=== PATIENT | male | born 1940 | race Caucasian/White ===

== ENCOUNTER 2019-08-03 19:03 | Inpatient (IN) ==
[2019-08-03] MEDS ORDERED: Nitroglycerin 0.4 MG TAB.SUBL SL PRN ×2 (19:11→21:56)
[2019-08-03] MEDS ORDERED: Aspirin 81 MG TAB.CHEW PO ONE (19:11)
[2019-08-03] MEDS ORDERED: 0.9 % Sodium Chloride 1,000 ML IVC ONE (19:17)
[2019-08-03] MEDS ORDERED: Nitroglycerin 0.4 MG TAB.SUBL SL ONE (19:21)
[2019-08-03] MEDS ORDERED: *HR* Ticagrelor 90 MG TABLET ONE (19:28)
[2019-08-03] MEDS ORDERED: *HR* Heparin 5,000 UNIT/ML VIAL ONE (19:29)
[2019-08-03] MEDS ORDERED: *HR* Ticagrelor 90 MG TABLET PO ONE (19:30)
[2019-08-03] MEDS ORDERED: *HR* Heparin 5,000 UNIT/ML VIAL IVP ONE (19:30)
[2019-08-03] MEDS ORDERED: Heparin 1,000 UNITS/500 mL 500 ML ONE (19:38)
[2019-08-03] MEDS ORDERED: Nitroglycerin 1,000 MCG/10 ML VIAL IV ONE (19:38)
[2019-08-03] MEDS ORDERED: *HR* Heparin 10,000 UNIT/10 ML VIAL ONE (19:38)
[2019-08-03] MEDS ORDERED: 0.9 % Sodium Chloride 1,000 ML ONE (19:38)
[2019-08-03] MEDS ORDERED: ISOVUE-370 200 ML INFUS..BTL ONE (19:38)
[2019-08-03] MEDS ORDERED: *HR* FentaNYL (PF) 100 MCG/2 ML VIAL ONE (19:41)
[2019-08-03] MEDS ORDERED: methylPREDNISolone 125 MG/2 ML VIAL ONE (19:41)
[2019-08-03] MEDS ORDERED: *HR* Midazolam HCl 2 MG/2 ML VIAL ONE ×2 (19:41→20:05)
[2019-08-03] MEDS ORDERED: Verapamil 5 MG/2 ML VIAL ONE (19:45)
[2019-08-03 19:48] LABS: Basophils % 0.5 %; Eosinophils # 0.1 K/mcL (0.0-0.6); Eosinophils % 1.4 %; Hematocrit 37.9 % (37.5-50.1); Hemoglobin 12.7 g/dL (12.9-16.9); Immature Granulocytes % 0.3 % (0-4); Lymphocytes # 1.7 K/mcL (0.6-4.6); Lymphocytes % 25.9 %; Mean Corpuscular HGB Conc 33.5 g/dL (31.6-35.5); Mean Corpuscular Hemoglobin 33.7 pg (28.0-33.3); Mean Corpuscular Volume 100.5 fL (83.0-100.0); Mean Platelet Volume 13.3 fL (9.4-12.4); Monocytes # 0.7 K/mcL (0.0-1.3); Monocytes % 10.5 %; Platelet Count 175 K/mcL (140-400); Red Blood Count 3.77 M/mcL (4.19-5.50); Red Cell Distribution Width 14.1 % (11.5-14.5); Segmented Neutrophils % 61.4 %; White Blood Count 6.6 K/mcL (4.3-11.1)
[2019-08-03 19:49] LABS: Prothrombin Time 11.7 Seconds (9.4-12.1)
[2019-08-03 19:52] LABS: Activated Partial Thrombo Time 29.6 Seconds (26.0-36.0)
[2019-08-03] MEDS ORDERED: *HR* Atropine Sulfate 1 MG/10 ML SYRINGE ONE (20:04)
[2019-08-03 20:09] LABS: BUN/Creatinine Ratio 15 (6-26); Blood Urea Nitrogen 14 mg/dL (8-23); Carbon Dioxide 28 mEq/L (23-29); Chloride 101 mEq/L (98-107); Glucose 127 mg/dL (70-105); Osmolality,Calculated 288 (280-300); Sodium 138 mEq/L (136-145); Troponin I 0.06 ng/mL (< 0.04); eGFR For African Americans > 60 (> 60); eGFR For Non-African Americans > 60 (> 60)
[2019-08-03] MEDS ORDERED: Tirofiban 12.5 MG/250ML 12.5 MG/250 ML BAG ONE (20:14)
[2019-08-03] MEDS ORDERED: Ondansetron 4 MG/2 ML VIAL IVP PRN ×2 (21:24→21:29)
[2019-08-03] MEDS ORDERED: Tirofiban 12.5 MG/250ML 12.5 MG/250 ML BAG IVC SCH (21:30)
[2019-08-03] MEDS ORDERED: Morphine Sulfate 2 MG/ML SYRINGE IVP PRN (21:57)
[2019-08-04] MEDS ORDERED: 0.9 % Sodium Chloride 1,000 ML ONE (01:00)
[2019-08-04 05:12] LABS: Hematocrit 36.3 % (37.5-50.1); Hemoglobin 12.5 g/dL (12.9-16.9); Immature Granulocytes % 0.3 % (0-4); Lymphocytes # 0.3 K/mcL (0.6-4.6); Lymphocytes % 5.2 %; Mean Corpuscular HGB Conc 34.4 g/dL (31.6-35.5); Mean Corpuscular Hemoglobin 34.2 pg (28.0-33.3); Mean Corpuscular Volume 99.5 fL (83.0-100.0); Mean Platelet Volume 12.9 fL (9.4-12.4); Monocytes # 0.1 K/mcL (0.0-1.3); Monocytes % 0.9 %; Platelet Count 182 K/mcL (140-400); Red Blood Count 3.65 M/mcL (4.19-5.50); Segmented Neutrophils % 93.6 %; White Blood Count 6.4 K/mcL (4.3-11.1)
[2019-08-04 05:30] LABS: BUN/Creatinine Ratio 17 (6-26); Blood Urea Nitrogen 11 mg/dL (8-23); Calcium 9.8 mg/dL (8.6-10.3); Carbon Dioxide 26 mEq/L (23-29); Chloride 104 mEq/L (98-107); Glucose 160 mg/dL (70-105); Osmolality,Calculated 289 (280-300); Potassium 3.8 mEq/L (3.5-5.1); Sodium 138 mEq/L (136-145); eGFR For African Americans > 60 (> 60); eGFR For Non-African Americans > 60 (> 60)
[2019-08-04] MEDS ORDERED: *HR* Enoxaparin 40 MG/0.4 ML SYRINGE SQ SCH (06:00)
[2019-08-04] MEDS ORDERED: Perflutren Lipid Microsphere 1.3 ML in 0.9 % Sodium Chloride 8.7 ML IVP ONE (08:52)
[2019-08-04] MEDS ORDERED: Aspirin 81 MG TAB.CHEW PO SCH (09:00)
[2019-08-04] MEDS ORDERED: *HR* Ticagrelor 90 MG TABLET PO SCH (09:00)
[2019-08-04] MEDS ORDERED: Nitroglycerin 0.4 MG TAB.SUBL SL PRN (15:53)
[2019-08-04] MEDS ORDERED: Ondansetron 4 MG/2 ML VIAL IVP PRN ×2 (15:53)
[2019-08-04] MEDS ORDERED: Morphine Sulfate 2 MG/ML SYRINGE IVP PRN (15:53)
[2019-08-04] MEDS: *HR* Ticagrelor 90 MG TABLET PO SCH (20:25)
[2019-08-05] MEDS ORDERED: *HR* Enoxaparin 40 MG/0.4 ML SYRINGE SQ SCH (06:00)
[2019-08-05] MEDS: *HR* Ticagrelor 90 MG TABLET PO SCH ×2 (08:39→20:30)
[2019-08-05] MEDS ORDERED: Magnesium Oxide 400 MG TABLET PO SCH (09:00)
[2019-08-05] MEDS ORDERED: Aspirin 81 MG TAB.CHEW PO SCH (09:00)
[2019-08-05] MEDS ORDERED: Nitroglycerin 0.4 MG TAB.SUBL SL PRN (11:54)
[2019-08-05] MEDS ORDERED: Morphine Sulfate 2 MG/ML SYRINGE IVP PRN (11:54)
[2019-08-05] MEDS ORDERED: Ondansetron 4 MG/2 ML VIAL IVP PRN (11:54)
[2019-08-06] MEDS: *HR* Enoxaparin 40 MG/0.4 ML SYRINGE SQ SCH (05:16)
[2019-08-06 06:22] LABS: Basophils % 0.3 %; Eosinophils # 0.1 K/mcL (0.0-0.6); Eosinophils % 1.6 %; Hematocrit 35.9 % (37.5-50.1); Hemoglobin 12.2 g/dL (12.9-16.9); Immature Granulocytes % 0.3 % (0-4); Lymphocytes # 1.5 K/mcL (0.6-4.6); Lymphocytes % 19.2 %; Mean Corpuscular Hemoglobin 34.2 pg (28.0-33.3); Mean Corpuscular Volume 100.6 fL (83.0-100.0); Mean Platelet Volume 12.8 fL (9.4-12.4); Monocytes # 1.2 K/mcL (0.0-1.3); Monocytes % 14.6 %; Neutrophils # 5.1 K/mcL (1.6-8.9); Platelet Count 142 K/mcL (140-400); Red Blood Count 3.57 M/mcL (4.19-5.50); Red Cell Distribution Width 14.6 % (11.5-14.5); White Blood Count 7.9 K/mcL (4.3-11.1)
[2019-08-06 06:44] LABS: BUN/Creatinine Ratio 30 (6-26); Blood Urea Nitrogen 22 mg/dL (8-23); Carbon Dioxide 28 mEq/L (23-29); Chloride 104 mEq/L (98-107); Glucose 99 mg/dL (70-105); Osmolality,Calculated 291 (280-300); Potassium 3.7 mEq/L (3.5-5.1); Sodium 139 mEq/L (136-145); eGFR For African Americans > 60 (> 60); eGFR For Non-African Americans > 60 (> 60)
[2019-08-06] MEDS: Aspirin 81 MG TAB.CHEW PO SCH (08:27)
[2019-08-06] MEDS: Magnesium Oxide 400 MG TABLET PO SCH (08:27)
[2019-08-06] MEDS: *HR* Ticagrelor 90 MG TABLET PO SCH ×2 (08:29→20:53)
[2019-08-06] MEDS ORDERED: Ibuprofen 600 MG TABLET PO PRN (10:15)
[2019-08-06] MEDS ORDERED: Gadolinium Contrast Agent (WT Based) IV PRN (12:23)
[2019-08-07] MEDS: *HR* Enoxaparin 40 MG/0.4 ML SYRINGE SQ SCH (04:58)
[2019-08-07] MEDS: Aspirin 81 MG TAB.CHEW PO SCH (09:53)
[2019-08-07] MEDS: *HR* Ticagrelor 90 MG TABLET PO SCH (09:53)
[2019-08-07] MEDS: Magnesium Oxide 400 MG TABLET PO SCH (09:54)
[2019-08-08] MEDS: *HR* Enoxaparin 40 MG/0.4 ML SYRINGE SQ SCH (06:16)
[2019-08-08] MEDS: Magnesium Oxide 400 MG TABLET PO SCH (07:56)
[2019-08-08] MEDS: Aspirin 81 MG TAB.CHEW PO SCH (07:58)
[2019-08-08 11:25] VITALS: BP 105/64
== END 2019-08-08 16:57 | disposition home or self-care (01) | DRG 246 ==
LOC: EMEROOARM 19:03 → ICNU 19:51 → 2NNU 08-06 15:42
PROVIDERS: ADMIT Emergency Medicine; ATTEND Internal Medicine Clinical Cardiac Electrophysiology